=== PATIENT | female | born 1965 | race Caucasian/White ===

== ENCOUNTER → 2017-01-12 | Day surgery (SDC) | payer OTHER ==
[~2017-01-12] VITALS: Ht 165.1 cm; Wt 74.0 kg
[~2017-01-12] MED LIST: BUPIVACAINE HCL PF 0.5% 30 ML VIAL ONE; CHLORHEXIDINE GLUCONATE 2 % 1 PACK (2 CLOTHS) TOPICAL PRN; DEXT 5%-NACL 0.45% 1000 ML INJ 1,000 ML IV SCH; FAMOTIDINE 20 MG/2 ML VIAL ONE; FEXO1TAB97 PO; IBUP800T23 PO; INSULIN HUMAN REGULAR 1,000 UNITS/10 ML VIAL SQ PRN; LACTATED RINGER'S 1000 ML IV PRN; LEVO75TA43 PO; MAXA10TA2 PO; METOPROLOL TARTRATE 25 MG TAB PO PRN; MIDAZOLAM HCL 2 MG/2 ML VIAL ONE; MORPHINE SULFATE 4 MG/ML INJ ONE; MULT1TAB46; ONDANSETRON HCL 4 MG/2 ML VIAL IV PUSH ONE; POVIDONE IODINE 5% (ANTISEPSIS KIT) 4 APPLICATIONS EACH NARE PRN; PROPOFOL 200 MG/20 ML AMP IV ONE; SODIUM CHLORID 0.9% 500 ML IV PRN; SODIUM CHLORIDE 0.9% FLUSH 5 ML FLUSH IVF PRN; SODIUM CHLORIDE 0.9% FLUSH 5 ML FLUSH IVF SCH; ceFAZolin 2 GM PREMIX 50 ML IV SCH
[2017-01-12 07:35] VITALS: BP 131/83; PULSE 68; RESP 16; TEMP 98.2; O2SAT 97
[2017-01-12 07:58] LABS: HEMATOCRIT 42.3 % (35.0-46.0); MEAN CELL VOLUME 94.5 FL (80.0-100.0); MEAN CORPUSCULAR HEMOGLOBIN 32.4 PG (27.0-34.0); MEAN CORPUSCULAR HGB CONC 34.3 % (32.0-36.0); PLATELET COUNT 266 TH/MM3 (150-450); RED BLOOD COUNT 4.48 MIL/MM3 (4.00-5.30); RED CELL DISTRIBUTION WIDTH 11.8 % (11.6-17.2); REVIEW FLAG FINAL
--- NOTE | 2017-01-12 08:02 | HP.UPD ---
H&P Update Date: Jan 12, 2017 Note The Pre-Admit History and Physical Examination regarding the above named patient was reviewed (including, but not limited to, vital signs, medications, allergies, co-morbid conditions), and upon re-examination it is noted that: Indicated with "X" x - the patient's condition has not significantly changed since the last examination. [] - the patient's condition has changed since the last examination. Changes: Karlee Manuel MD Jan 12, 2017 08:01
--- NOTE | 2017-01-12 11:01 | HHI.PR ---
Immediate Post Op Note Procedure Date: Jan 12, 2017 Pre Op Diagnosis: (1) Ganglion cyst of wrist Post Op Diagnosis: (1) Ganglion cyst of wrist Surgeon: Karlee Manuel Inbound Sales Manager(s): Eh Stanley PA-C Procedure: Excision of recurrent volar ganglion cyst of right wrist. Complications: n/a Specimen(s) removed: Cyst, right volar wrist. Estimated blood loss: n/a Anesthesia: General Drains: None Tourniquet time (min at mmHg) 45 minutes at 220 mmHg Patient to: PACU Patient Condition: Good Date/Time of Procedure: SEE SURGICAL CARE RECORD Karlee Manuel MD Jan 12, 2017 11:01
[2017-01-12 11:03] VITALS: PULSE 70
[2017-01-12 12:30] VITALS: BP 120/73; PULSE 60; RESP 14; TEMP 98; O2SAT 98
--- NOTE | 2017-01-13 17:08 | MP ---
cc: TISHA SEN MD DATE OF SURGERY 01/12/17 PREOPERATIVE DIAGNOSIS Ganglion cyst recurrent of right volar wrist. POSTOPERATIVE DIAGNOSIS Ganglion cyst recurrent of right volar wrist. PROCEDURE Excision of recurrent volar ganglion cyst of the right wrist ANESTHESIA General SURGEON Mary Sen MD PHOTOCOPIER TECHNICIAN Eh Stanley PA-C INDICATIONS A 51-year-old female who had a ganglion cyst removed from her wrist approximately 1 1/2 years ago which did recur. FINDINGS At the completion of the procedure, the cyst was completely removed. It did appear to come from deep in the wound all the way from the radioscaphoid joint. TOURNIQUET TIME 45 minutes. PROCEDURE IN DETAIL The patient was seen preoperatively where the site and side were identified and marked. The patient was then taken to the operating room, placed in a supine position. Her identity was checked against the arm band and the consent form, site and side confirmed, time-out called prior to beginning the procedure. The right upper extremity was prepped with Hibiclens and draped in usual sterile fashion. The area to be incised was outlined with a marking pen as a transverse incision over the cyst which measured 1.5 x 1.7 cm in greatest dimension. The arm was exsanguinated and the tourniquet inflated to 220 mmHg. Incision was made down through the skin down to the subcutaneous tissue. Under loupe magnification, scar tissue which was attached to the cyst was carefully along with the radial artery and its branches. The dissection was continued down to the root and excised. The area was searched and small remnants were removed until there was no evidence of any ganglionic tissue. At this point, the wound was copiously irrigated with saline and closed with 4-0 Vicryl to the deep layers and Dermabond to the skin. Bupivacaine 0.5% plain was injected as a field block proximally as well as into the areas that were operated. Once the wound was closed with the 4-0 Vicryl and the skin was approximated with Dermabond, the glue was allowed to dry and two layers were placed and then Steri-Strips were placed on top of this. The tourniquet was released after 45 minutes of tourniquet time. Pressure was applied. After several minutes, there was no evidence of any oozing. A dressing was applied using 4x4s, cast padding, a thumb spica splint held in place with hand wrap. The patient was then taken from the operating room to the recovery room in satisfactory condition having tolerated the procedure well. Postoperative instructions include keeping the arm elevated, keeping it clean and dry and returning in several days for follow up. MD LOAN Nick/ /11:06 AM /5:02 PM
== END | disposition home or self-care (01) ==
LOC: PHSDC 07:14
PROVIDERS: ATTEND Specialist
DX: M67.431 Ganglion, right wrist (principal)
CPT/HCPCS: 01810; 25112; 36415; 85027; 88304; J0690; J2250; J2270; J2405; J7120